=== PATIENT | male | born 1955 | race Caucasian/White ===

== ENCOUNTER 2023-11-30 18:03 | Inpatient (IN) | payer OTHER, BC ==
[2023-11-30] MEDS: SODIUM CHLORIDE 0.9% 500 ML INFUS.BAG IV ONE (18:35)
[2023-11-30 19:17] LABS: VENOUS O2 SATURATION 86.4 % (70-80); VENOUS PCO2 34.4 mmHg (38-52); VENOUS PH 7.454 (7.310-7.410)
[2023-11-30] MEDS: ACETAMINOPHEN 1000 MG/100 ML BAG IVPB ONE ×2 (19:20→19:30)
[2023-11-30 19:23] LABS: HEMATOCRIT 33.5 % (35.4-49); HEMOGLOBIN 10.7 GM/dL (11.7-16.9); MCH 30.2 pg (25.7-33.7); MCHC 31.8 g/dl (32.0-35.9); MEAN CELL VOLUME 94.9 fl (80-96); MEAN PLT VOLUME 7.5 fl (7.5-11.1); PLATELET COUNT 314 10^3/uL (134-434); RBC 3.53 M/mm3 (4.00-5.60); RDW 18.3 % (11.9-15.9); WHITE BLOOD COUNT 23.7 K/mm3 (4.0-10.0)
[2023-11-30] MEDS ORDERED: PIPERACILLIN/TAZOB 4.5 GM 4.5 GM/100 ML BAG IVPB ONE (19:23)
[2023-11-30] MEDS ORDERED: VANCOMYCIN 1 GRAM (PRE-DOCKED) 1,000 MG/250 ML BAG IVPB ONE (19:23)
[2023-11-30] MEDS: LACTATED RINGERS SOLUTION 1000 ML INFUS.BAG IV ONE ×2 (19:35→21:04)
[2023-11-30 19:36] LABS: ACTIVATED PTT 37.9 SECONDS (25.2-36.5); INR 1.58 (0.83-1.09); PROTHROMBIN TIME (PATIENT) 18.2 SEC (9.7-13.0)
[2023-11-30 19:37] LABS: POTASSIUM 5.5 mmol/L (3.5-5.1)
[2023-11-30 19:39] LABS: CALCIUM 8.8 mg/dL (8.5-10.1)
[2023-11-30 19:40] LABS: ALBUMIN 1.8 g/dl (3.4-5.0); BLOOD UREA NITROGEN 44.3 mg/dL (7-18)
[2023-11-30 19:45] LABS: BILIRUBIN,TOTAL 0.9 mg/dL (0.2-1); TOT PROT 6.8 g/dl (6.4-8.2)
[2023-11-30 19:46] LABS: LACTIC ACID 3.6 mmol/L (0.4-2.0)
[2023-11-30] MEDS: PIPERACILLIN/TAZOBACTAM 4.5 GM VIAL IVPB ONE (19:51)
[2023-11-30 20:06] LABS: ANISOCYTOSIS 1+; MACROCYTOSIS 1+; OVALOCYTE 1+
[2023-11-30] MEDS ORDERED: NOREPINEPHRINE 0.9 % NACL 8 MG/250 ML BAG IVPB ONE (20:07)
[2023-11-30 20:11] LABS: PLATELET ESTIMATE ADEQUATE
[2023-11-30] MEDS: VANCOMYCIN 1,000 MG in DEXTROSE 5%-WATER - 250 ML IVPB ONE (20:14)
[2023-11-30] MEDS: NOREPINEPHRINE IVPB SCH (20:38)
[2023-11-30] MEDS: NACL IVPB SCH (20:38)
[2023-11-30] MEDS: SODIUM CHLORIDE 2,694 ML IV ONE (21:02)
[2023-11-30] MEDS: NOREPINEPHRINE 0.9 % NACL 8 MG/250 ML BAG IVPB SCH (22:30)
[2023-11-30] MEDS ORDERED: PIPERACILLIN/TAZOB 2.25 GM 2.25 GM in DEXTROSE 5%-WATER - 50 ML IVPB SCH (22:45)
[2023-11-30] MEDS: PIPERACILLIN/TAZOB 2.25 GM 2.25 GM in DEXTROSE 5%-WATER - 50 ML IVPB SCH (23:58)
[2023-12-01 00:21] LABS: VENOUS BASE EXCESS -3.5 mmol/L (-2-2); VENOUS O2 SATURATION 83.6 % (70-80); VENOUS PCO2 39.7 mmHg (38-52); VENOUS PH 7.356 (7.310-7.410)
[2023-12-01 00:45] LABS: CALCIUM 7.9 mg/dL (8.5-10.1)
[2023-12-01 00:46] LABS: ALBUMIN 1.5 g/dl (3.4-5.0); BLOOD UREA NITROGEN 41.2 mg/dL (7-18); MAGNESIUM 1.9 mg/dL (1.8-2.4)
[2023-12-01 00:48] LABS: PHOSPHOROUS 4.2 mg/dL (2.5-4.9)
[2023-12-01 00:49] LABS: CREATININE 6.6 mg/dL (0.55-1.3)
[2023-12-01 00:50] LABS: BILIRUBIN,TOTAL 0.8 mg/dL (0.2-1)
[2023-12-01] MEDS: MUPIROCIN 2% TOPICAL OINTMENT FOR DECOLONIZATION NS SCH (02:19)
[2023-12-01] MEDS: INSULIN ASPART SLIDING SCALE (NOVOLOG) 1 VIAL SQ SCH (02:25)
[2023-12-01 06:46] LABS: INR 1.65 (0.83-1.09)
[2023-12-01 06:49] LABS: ACTIVATED PTT 36.2 SECONDS (25.2-36.5); HEMATOCRIT 33.3 % (35.4-49); HEMOGLOBIN 10.5 GM/dL (11.7-16.9); MCH 30.1 pg (25.7-33.7); MCHC 31.5 g/dl (32.0-35.9); MEAN CELL VOLUME 95.5 fl (80-96); MEAN PLT VOLUME 7.2 fl (7.5-11.1); PLATELET COUNT 345 10^3/uL (134-434); RBC 3.49 M/mm3 (4.00-5.60); RDW 18.2 % (11.9-15.9)
[2023-12-01 06:58] LABS: POTASSIUM 5.2 mmol/L (3.5-5.1)
[2023-12-01 07:01] LABS: ALBUMIN 1.5 g/dl (3.4-5.0); BLOOD UREA NITROGEN 46.1 mg/dL (7-18); CALCIUM 7.9 mg/dL (8.5-10.1); MAGNESIUM 1.9 mg/dL (1.8-2.4)
[2023-12-01 07:04] LABS: CREATININE 6.8 mg/dL (0.55-1.3); PHOSPHOROUS 4.6 mg/dL (2.5-4.9)
[2023-12-01 07:06] LABS: BILIRUBIN,TOTAL 0.7 mg/dL (0.2-1); TOT PROT 5.8 g/dl (6.4-8.2)
[2023-12-01 09:03] LABS: HEMOGLOBIN 10.9 GM/dL (11.7-16.9); MCH 30.4 pg (25.7-33.7); MCHC 32.1 g/dl (32.0-35.9); MEAN CELL VOLUME 94.6 fl (80-96); MEAN PLT VOLUME 7.3 fl (7.5-11.1); PLATELET COUNT 361 10^3/uL (134-434); RBC 3.59 M/mm3 (4.00-5.60); RDW 18.4 % (11.9-15.9)
[2023-12-01 09:23] LABS: POTASSIUM 5.3 mmol/L (3.5-5.1)
[2023-12-01 09:27] LABS: CALCIUM 8.1 mg/dL (8.5-10.1)
[2023-12-01 09:28] LABS: ALBUMIN 1.4 g/dl (3.4-5.0); BLOOD UREA NITROGEN 46.2 mg/dL (7-18)
[2023-12-01 09:31] LABS: BILIRUBIN,TOTAL 0.7 mg/dL (0.2-1); CREATININE 6.9 mg/dL (0.55-1.3); PHOSPHOROUS 4.6 mg/dL (2.5-4.9)
[2023-12-01 09:32] LABS: TOT PROT 5.9 g/dl (6.4-8.2)
[2023-12-01] MEDS: HEPARIN NA (PORCINE) 5,000 UNITS/ML 1ML VIAL SQ SCH (09:36)
[2023-12-01] MEDS: PANTOPRAZOLE SODIUM 40 MG VIAL IVPUSH SCH (09:36)
[2023-12-01 09:47] LABS: ANISOCYTOSIS 0; HELMET CELLS 0; HOWELL-JOLLY BODIES 0; MACROCYTOSIS 0; OVALOCYTE 0; ROULEAU 0; SICKELED CELLS 0; TARGET CELLS 0; TEAR DROP CELLS 0; TOXIC GRANULATION 0
[2023-12-01] MEDS: SODIUM CHLORIDE 1,000 ML IV SCH (11:00)
[2023-12-01] MEDS ORDERED: SODIUM CHLORIDE 250 ML IV PRN (13:04)
[2023-12-01] MEDS ORDERED: HEPARIN NA (PORCINE) 5,000 UNITS/ML 1ML VIAL IVPUSH PRN (15:31)
[2023-12-01] MEDS: HEPARIN INFUSION - 25,000 UNITS/500 ML INFUS.BAG IVPB SCH (16:13)
[2023-12-01] MEDS: HEPARIN NA (PORCINE) 5,000 UNITS/ML 1ML VIAL IVPUSH ONE (16:13)
[2023-12-01 17:31] LABS: BF WBC & OTHER NUCLEATED CELLS 204 /mm3
[2023-12-01] MEDS: PIPERACILLIN/TAZOB 2.25 GM 2.25 GM in DEXTROSE 5%-WATER - 50 ML IVPB SCH (17:41)
[2023-12-01] MEDS: SODIUM ZIRCONIUM CYCLOSILICATE (LOKELMA) 5 GM PACKET PO ONE (17:57)
[2023-12-01 18:19] LABS: BODY FLUID MACROPHAGES 14 %; BODY FLUID MESOTHELIAL 29 %; BODY FLUID MONOCYTE 18 %
[2023-12-01] MEDS: CHLORHEXIDINE GLUCONATE 4% CLEANSER FOR DECOLONIZATION TP SCH (21:18)
[2023-12-02] MEDS: ACETAMINOPHEN 1000 MG/100 ML BAG IVPB ONE (02:00)
[2023-12-02 06:21] LABS: BASO % 0.4 % (0-2.0); EOS % 0.8 % (0-4.5); HEMOGLOBIN 10.6 GM/dL (11.7-16.9); LYMPH % 5.3 % (8-40); MCH 30.7 pg (25.7-33.7); MCHC 32.2 g/dl (32.0-35.9); MEAN CELL VOLUME 95.6 fl (80-96); MEAN PLT VOLUME 7.4 fl (7.5-11.1); MONO % 5.7 % (3.8-10.2); NEUT % 87.8 % (42.8-82.8); PLATELET COUNT 336 10^3/uL (134-434); RBC 3.46 M/mm3 (4.00-5.60); RDW 18.5 % (11.9-15.9); WHITE BLOOD COUNT 19.8 K/mm3 (4.0-10.0)
[2023-12-02 06:34] LABS: POTASSIUM 5.5 mmol/L (3.5-5.1)
[2023-12-02 06:36] LABS: ALBUMIN 1.4 g/dl (3.4-5.0); CALCIUM 8.1 mg/dL (8.5-10.1); MAGNESIUM 2.1 mg/dL (1.8-2.4)
[2023-12-02 06:37] LABS: BLOOD UREA NITROGEN 55.1 mg/dL (7-18); INR 1.38 (0.83-1.09)
[2023-12-02 06:39] LABS: PHOSPHOROUS 5.2 mg/dL (2.5-4.9)
[2023-12-02 06:40] LABS: CREATININE 7.2 mg/dL (0.55-1.3)
[2023-12-02 06:41] LABS: BILIRUBIN,TOTAL 0.6 mg/dL (0.2-1); TOT PROT 5.8 g/dl (6.4-8.2)
[2023-12-02] MEDS: HEPARIN NA (PORCINE) 5,000 UNITS/ML 1ML VIAL IVPUSH PRN (07:00)
[2023-12-02] MEDS: MIDODRINE HCL 5 MG TABLET PO SCH (09:26)
[2023-12-02] MEDS: ALBUMIN HUMAN 25% 12.5 GM/50 ML VIAL IV SCH (09:30)
[2023-12-02] MEDS: MIDAZOLAM HCL 5 MG/2.5 ML SYRUP PO ONE (09:33)
[2023-12-02] MEDS ORDERED: SODIUM ZIRCONIUM CYCLOSILICATE (LOKELMA) 5 GM PACKET PO SCH (10:00)
[2023-12-02] MEDS: METOPROLOL TARTRATE 25 MG TABLET (FP) PO SCH (10:27)
[2023-12-02] MEDS: EPOETIN ALFA-EPBX 3,000 UNIT/ML VIAL SQ ONE (10:39)
[2023-12-02] MEDS: ISOSORBIDE DINITRATE 5 MG TABLET PO SCH (12:04)
[2023-12-02] MEDS: CALCIUM ACETATE 667 MG CAPSULE (FP) PO SCH (12:10)
[2023-12-02] MEDS: ACETAMINOPHEN 1000 MG/100 ML BAG IVPB PRN (13:45)
[2023-12-02 15:40] LABS: CALCIUM 7.9 mg/dL (8.5-10.1)
[2023-12-02 15:44] LABS: CREATININE 4.3 mg/dL (0.55-1.3); PHOSPHOROUS 2.7 mg/dL (2.5-4.9)
[2023-12-02 15:58] LABS: BLOOD UREA NITROGEN 27.6 mg/dL (7-18)
[2023-12-02] MEDS: FENTANYL CITRATE/PF 50 MCG/ML VIAL IVPUSH ONE (19:48)
[2023-12-02] MEDS: ATORVASTATIN CA 20 MG TABLET (FP) PO SCH (21:12)
[2023-12-02] MEDS: oxyCODONE HCL 5 MG TABLET PO PRN (22:51)
[2023-12-02] MEDS ORDERED: INSULIN (NOVOLOG) ASPART 100 UNITS/ML 10ML VIAL ONE (22:57)
[2023-12-03 06:36] LABS: BASO % 0.4 % (0-2.0); EOS % 1.7 % (0-4.5); HEMATOCRIT 28.7 % (35.4-49); HEMOGLOBIN 9.3 GM/dL (11.7-16.9); LYMPH % 9.3 % (8-40); MCH 30.7 pg (25.7-33.7); MCHC 32.6 g/dl (32.0-35.9); MEAN CELL VOLUME 94.3 fl (80-96); MEAN PLT VOLUME 7.7 fl (7.5-11.1); MONO % 5.8 % (3.8-10.2); NEUT % 82.8 % (42.8-82.8); PLATELET COUNT 224 10^3/uL (134-434); RBC 3.04 M/mm3 (4.00-5.60); RDW 18.6 % (11.9-15.9); WHITE BLOOD COUNT 9.5 K/mm3 (4.0-10.0)
[2023-12-03 06:54] LABS: POTASSIUM 4.2 mmol/L (3.5-5.1)
[2023-12-03 06:57] LABS: CALCIUM 7.7 mg/dL (8.5-10.1)
[2023-12-03 06:58] LABS: ALBUMIN 1.5 g/dl (3.4-5.0); BLOOD UREA NITROGEN 32.8 mg/dL (7-18); MAGNESIUM 1.8 mg/dL (1.8-2.4)
[2023-12-03 07:01] LABS: CREATININE 5.2 mg/dL (0.55-1.3); PHOSPHOROUS 3.1 mg/dL (2.5-4.9)
[2023-12-03 07:02] LABS: BILIRUBIN,TOTAL 0.5 mg/dL (0.2-1); TOT PROT 5.4 g/dl (6.4-8.2)
[2023-12-03] MEDS ORDERED: INSULIN (NOVOLOG) ASPART 100 UNITS/ML 10ML VIAL ONE ×2 (11:37→17:57)
[2023-12-03] MEDS: ISOSORBIDE DINITRATE 10 MG TABLET PO SCH (13:14)
[2023-12-04 07:56] LABS: HEMOGLOBIN 10.2 GM/dL (11.7-16.9); MCH 30.4 pg (25.7-33.7); MCHC 31.8 g/dl (32.0-35.9); MEAN CELL VOLUME 95.4 fl (80-96); MEAN PLT VOLUME 7.9 fl (7.5-11.1); PLATELET COUNT 254 10^3/uL (134-434); RBC 3.35 M/mm3 (4.00-5.60); RDW 18.5 % (11.9-15.9); WHITE BLOOD COUNT 9.6 K/mm3 (4.0-10.0)
[2023-12-04 08:14] LABS: POTASSIUM 4.6 mmol/L (3.5-5.1)
[2023-12-04 08:18] LABS: CALCIUM 8.5 mg/dL (8.5-10.1)
[2023-12-04 08:19] LABS: ALBUMIN 1.5 g/dl (3.4-5.0); BLOOD UREA NITROGEN 41.9 mg/dL (7-18); MAGNESIUM 2.1 mg/dL (1.8-2.4)
[2023-12-04 08:21] LABS: CREATININE 5.8 mg/dL (0.55-1.3)
[2023-12-04 08:22] LABS: BILIRUBIN,TOTAL 0.5 mg/dL (0.2-1); PHOSPHOROUS 3.7 mg/dL (2.5-4.9)
[2023-12-04 08:24] LABS: TOT PROT 5.8 g/dl (6.4-8.2)
[2023-12-04] MEDS: ISOSORBIDE DINITRATE 5 MG TABLET PO SCH (09:02)
[2023-12-04 09:18] LABS: ANISOCYTOSIS 1+; MACROCYTOSIS 0
[2023-12-04] MEDS: METOPROLOL TARTRATE 25 MG TABLET (FP) PO ONE (10:26)
[2023-12-04] MEDS: METOPROLOL TARTRATE 25 MG TABLET (FP) PO SCH ×2 (11:13→21:33)
[2023-12-04] MEDS ORDERED: INSULIN (NOVOLOG) ASPART 100 UNITS/ML 10ML VIAL ONE ×3 (11:28→16:22)
[2023-12-04] MEDS ORDERED: SODIUM CHLORIDE 250 ML IV PRN (11:32)
[2023-12-04] MEDS ORDERED: HEPARIN INFUSION - 500 ML IVPB SCH ×2 (13:30)
[2023-12-04] MEDS ORDERED: PYRIDOXINE HCL (B-6) 50 MG TABLET (FP) PO SCH (15:30)
[2023-12-04] MEDS: HEPARIN INFUSION - 25,000 UNITS/500 ML INFUS.BAG IVPB SCH (15:55)
[2023-12-04] MEDS ORDERED: INSULIN ASPART SLIDING SCALE (NOVOLOG) 1 VIAL SQ SCH (16:08)
[2023-12-04] MEDS: INSULIN ASPART SLIDING SCALE (NOVOLOG) 1 VIAL SQ SCH ×3 (16:23→17:53)
[2023-12-04] MEDS: CALCIUM ACETATE 667 MG CAPSULE (FP) PO SCH (17:15)
[2023-12-04] MEDS: PYRIDOXINE HCL (B-6) 50 MG TABLET (FP) PO SCH (17:16)
[2023-12-04] MEDS: MIDODRINE HCL 5 MG TABLET PO SCH (17:16)
[2023-12-04] MEDS: ATORVASTATIN CA 20 MG TABLET (FP) PO SCH (21:33)
[2023-12-04] MEDS: APIXABAN 5 MG TABLET PO SCH (21:37)
[2023-12-04] MEDS: INSULIN (LEVEMIR) 100 UNITS/ML UNITS SQ SCH (21:40)
[2023-12-04] MEDS ORDERED: APIXABAN 5 MG TABLET PO SCH (22:00)
[2023-12-05] MEDS: PANTOPRAZOLE 40 MG TABLET PO SCH (10:13)
[2023-12-05] MEDS: DIGOXIN 0.5 MG/2 ML AMPUL IVPUSH ONE (10:14)
[2023-12-05 13:30] LABS: BASO % 0.9 % (0-2.0); EOS % 1.3 % (0-4.5); HEMATOCRIT 33.7 % (35.4-49); HEMOGLOBIN 10.8 GM/dL (11.7-16.9); MCH 30.6 pg (25.7-33.7); MEAN CELL VOLUME 95.6 fl (80-96); MEAN PLT VOLUME 7.6 fl (7.5-11.1); NEUT % 83.8 % (42.8-82.8); PLATELET COUNT 253 10^3/uL (134-434); RBC 3.52 M/mm3 (4.00-5.60); RDW 18.5 % (11.9-15.9); WHITE BLOOD COUNT 11.8 K/mm3 (4.0-10.0)
[2023-12-05 13:53] LABS: POTASSIUM 5.3 mmol/L (3.5-5.1)
[2023-12-05 14:08] LABS: BODY FLUID ALBUMIN 1.8 g/dL (Not Estab.)
[2023-12-05 14:11] LABS: ALBUMIN 1.6 g/dl (3.4-5.0); BLOOD UREA NITROGEN 46.8 mg/dL (7-18); CALCIUM 8.5 mg/dL (8.5-10.1); MAGNESIUM 2.1 mg/dL (1.8-2.4)
[2023-12-05 14:14] LABS: CREATININE 6.6 mg/dL (0.55-1.3)
[2023-12-05 14:16] LABS: BILIRUBIN,TOTAL 0.6 mg/dL (0.2-1); TOT PROT 5.9 g/dl (6.4-8.2)
[2023-12-05] MEDS: ALBUMIN HUMAN 25% 12.5 GM/50 ML VIAL IV SCH (15:50)
[2023-12-05] MEDS: EPOETIN ALFA-EPBX 2,000 UNIT/ML VIAL IVPUSH ONE (15:51)
[2023-12-05] MEDS: METOPROLOL TARTRATE 25 MG TABLET (FP) PO SCH (21:33)
[2023-12-06] MEDS: PIPERACILLIN/TAZOB 2.25 GM 2.25 GM in DEXTROSE 5%-WATER - 50 ML IVPB SCH (01:14)
[2023-12-06] MEDS ORDERED: DEXTROSE 50%-WATER 25 GM/50 ML DISP.SYRIN ONE ×2 (06:19→12:07)
[2023-12-06] MEDS: DEXTROSE 50%-WATER - 25 GM/50 ML VIAL IVPUSH ONE (06:21)
[2023-12-06] MEDS: DEXTROSE 50%-WATER 25 GM/50 ML DISP.SYRIN IVPUSH ONE ×2 (06:39→15:38)
[2023-12-06] MEDS ORDERED: SODIUM CHLORIDE 250 ML IV PRN (21:37)
[2023-12-07 08:33] LABS: BASO % 0.7 % (0-2.0); EOS % 0.7 % (0-4.5); HEMOGLOBIN 12.7 GM/dL (11.7-16.9); MCH 30.4 pg (25.7-33.7); MCHC 31.8 g/dl (32.0-35.9); MEAN CELL VOLUME 95.7 fl (80-96); MEAN PLT VOLUME 7.9 fl (7.5-11.1); MONO % 3.1 % (3.8-10.2); NEUT % 88.5 % (42.8-82.8); PLATELET COUNT 307 10^3/uL (134-434); RBC 4.17 M/mm3 (4.00-5.60); WHITE BLOOD COUNT 15.1 K/mm3 (4.0-10.0)
[2023-12-07 09:01] LABS: POTASSIUM 5.9 mmol/L (3.5-5.1)
[2023-12-07 09:03] LABS: ALBUMIN 1.7 g/dl (3.4-5.0)
[2023-12-07 09:07] LABS: BILIRUBIN,TOTAL 0.8 mg/dL (0.2-1); TOT PROT 6.3 g/dl (6.4-8.2)
[2023-12-07] MEDS: INSULIN (LEVEMIR) 100 UNITS/ML UNITS SQ SCH (10:50)
[2023-12-07] MEDS ORDERED: EPOETIN ALFA-EPBX 2,000 UNIT/ML VIAL IVPUSH ONE (21:37)
[2023-12-07] MEDS: CARVEDILOL 6.25 MG TABLET (FP) PO SCH (22:30)
[2023-12-07 23:37] VITALS: BMI 26.2
[2023-12-08] MEDS: oxyCODONE HCL 5 MG TABLET PO PRN (00:23)
[2023-12-08] MEDS ORDERED: INSULIN (NOVOLOG) ASPART 100 UNITS/ML 10ML VIAL ONE (12:11)
[2023-12-08] MEDS ORDERED: SODIUM CHLORIDE 250 ML IV PRN (16:15)
[2023-12-09 08:36] LABS: ALBUMIN 1.6 g/dl (3.4-5.0)
[2023-12-09 08:38] LABS: BILIRUBIN,DIRECT 0.4 mg/dL (0.0-0.2)
[2023-12-09 08:40] LABS: BILIRUBIN,TOTAL 0.9 mg/dL (0.2-1); TOT PROT 6.2 g/dl (6.4-8.2)
[2023-12-09 08:55] LABS: INR 1.89 (0.83-1.09); PROTHROMBIN TIME (PATIENT) 21.8 SEC (9.7-13.0)
[2023-12-10 17:24] LABS: HEMOGLOBIN 11.1 GM/dL (11.7-16.9); MCHC 32.8 g/dl (32.0-35.9); MEAN CELL VOLUME 94.6 fl (80-96); MEAN PLT VOLUME 7.2 fl (7.5-11.1); PLATELET COUNT 215 10^3/uL (134-434); RBC 3.59 M/mm3 (4.00-5.60); RDW 18.5 % (11.9-15.9)
[2023-12-10 17:42] LABS: POTASSIUM 4.5 mmol/L (3.5-5.1)
[2023-12-10 17:44] LABS: CALCIUM 9.3 mg/dL (8.5-10.1)
[2023-12-10 17:45] LABS: ALBUMIN 1.7 g/dl (3.4-5.0); BLOOD UREA NITROGEN 27.1 mg/dL (7-18)
[2023-12-10 17:47] LABS: CREATININE 4.7 mg/dL (0.55-1.3)
[2023-12-10 17:49] LABS: BILIRUBIN,TOTAL 0.8 mg/dL (0.2-1); TOT PROT 6.2 g/dl (6.4-8.2)
[2023-12-11 11:11] LABS: BASO % 1.2 % (0-2.0); EOS % 0.7 % (0-4.5); HEMATOCRIT 34.8 % (35.4-49); HEMOGLOBIN 11.1 GM/dL (11.7-16.9); MCH 30.5 pg (25.7-33.7); MCHC 31.8 g/dl (32.0-35.9); MEAN CELL VOLUME 95.8 fl (80-96); MEAN PLT VOLUME 7.5 fl (7.5-11.1); MONO % 6.3 % (3.8-10.2); NEUT % 81.8 % (42.8-82.8); PLATELET COUNT 224 10^3/uL (134-434); RBC 3.63 M/mm3 (4.00-5.60); RDW 17.9 % (11.9-15.9); WHITE BLOOD COUNT 8.9 K/mm3 (4.0-10.0)
[2023-12-11 11:18] LABS: INR 1.83 (0.83-1.09); PROTHROMBIN TIME (PATIENT) 21.1 SEC (9.7-13.0)
[2023-12-11 11:32] LABS: POTASSIUM 4.9 mmol/L (3.5-5.1)
[2023-12-11 11:34] LABS: ALBUMIN 1.6 g/dl (3.4-5.0); BLOOD UREA NITROGEN 35.4 mg/dL (7-18); CALCIUM 9.4 mg/dL (8.5-10.1)
[2023-12-11 11:37] LABS: CREATININE 5.5 mg/dL (0.55-1.3)
[2023-12-11 11:39] LABS: BILIRUBIN,TOTAL 0.9 mg/dL (0.2-1); TOT PROT 6.4 g/dl (6.4-8.2)
[2023-12-11] MEDS ORDERED: INSULIN (NOVOLOG) ASPART 100 UNITS/ML 10ML VIAL ONE (12:30)
[2023-12-11 18:40] LABS: BF WBC & OTHER NUCLEATED CELLS 71 /mm3
[2023-12-11 20:35] LABS: BODY FLUID MACROPHAGES 49 %; BODY FLUID MESOTHELIAL 27 %; BODY FLUID MONOCYTE 8 %
[2023-12-12] MEDS ORDERED: INSULIN (NOVOLOG) ASPART 100 UNITS/ML 10ML VIAL ONE ×2 (06:41→13:11)
[2023-12-12] MEDS ORDERED: SODIUM CHLORIDE 250 ML IV PRN (07:06)
[2023-12-12 09:09] LABS: HEMATOCRIT 35.3 % (35.4-49); HEMOGLOBIN 11.5 GM/dL (11.7-16.9); MCH 31.3 pg (25.7-33.7); MCHC 32.6 g/dl (32.0-35.9); MEAN CELL VOLUME 95.8 fl (80-96); MEAN PLT VOLUME 7.6 fl (7.5-11.1); PLATELET COUNT 215 10^3/uL (134-434); RBC 3.68 M/mm3 (4.00-5.60); RDW 17.4 % (11.9-15.9)
[2023-12-12 09:35] LABS: POTASSIUM 5.1 mmol/L (3.5-5.1)
[2023-12-12 09:36] LABS: ALBUMIN 1.5 g/dl (3.4-5.0); BILIRUBIN,TOTAL 0.7 mg/dL (0.2-1); BLOOD UREA NITROGEN 39.6 mg/dL (7-18); CALCIUM 9.3 mg/dL (8.5-10.1); CREATININE 6.2 mg/dL (0.55-1.3)
[2023-12-12] MEDS: ALBUMIN HUMAN 25% 12.5 GM/50 ML VIAL IV SCH (13:24)
[2023-12-13 09:01] VITALS: BP 121/75; PULSE 77; RESP 18; TEMP 97.3
[2023-12-13] MEDS: INSULIN (LEVEMIR) 100 UNITS/ML UNITS SQ SCH (09:05)
[2023-12-13] MEDS: ALBUMIN HUMAN 25% 12.5 GM/50 ML VIAL IV ONE (09:34)
[2023-12-13 14:18] LABS: BODY FLUID ALBUMIN 1.7 g/dL (Not Estab.)
== END 2023-12-13 12:39 | DRG 871 ==
LOC: JER 18:03 → EDBD 18:03 → JERBED 21:06 → JICU 22:06 → J4W 12-04 18:08
PROVIDERS: ADMIT Internal Medicine Pulmonary Disease; ATTEND Family Medicine
PROC: 5A1D70Z Performance of Urinary Filtration, Intermittent, Less than 6 Hours Per Day (ICD-10-PCS; principal; 2023-12-02)
PROC: 5A1D70Z Performance of Urinary Filtration, Intermittent, Less than 6 Hours Per Day (ICD-10-PCS; 2023-12-05)
PROC: 5A1D70Z Performance of Urinary Filtration, Intermittent, Less than 6 Hours Per Day (ICD-10-PCS; 2023-12-07)
PROC: 5A1D70Z Performance of Urinary Filtration, Intermittent, Less than 6 Hours Per Day (ICD-10-PCS; 2023-12-09)
PROC: 0W9G3ZZ Drainage of Peritoneal Cavity, Percutaneous Approach (ICD-10-PCS; 2023-12-11)
PROC: 5A1D70Z Performance of Urinary Filtration, Intermittent, Less than 6 Hours Per Day (ICD-10-PCS; 2023-12-12)
DX: A41.89 Other specified sepsis (principal); G93.41 Metabolic encephalopathy; I21.4 Non-ST elevation (NSTEMI) myocardial infarction; N18.6 End stage renal disease; R65.21 Severe sepsis with septic shock; J96.01 Acute respiratory failure with hypoxia; R18.8 Other ascites; Z94.0 Kidney transplant status; I12.0 Hypertensive chronic kidney disease with stage 5 chronic kidney disease or end stage renal disease; E87.20 Acidosis, unspecified; I25.10 Atherosclerotic heart disease of native coronary artery without angina pectoris; K74.60 Unspecified cirrhosis of liver; I48.91 Unspecified atrial fibrillation; E11.22 Type 2 diabetes mellitus with diabetic chronic kidney disease; Z99.2 Dependence on renal dialysis; R94.31 Abnormal electrocardiogram [ECG] [EKG]; R50.9 Fever, unspecified; D72.829 Elevated white blood cell count, unspecified; C62.90 Malignant neoplasm of unspecified testis, unspecified whether descended or undescended; L89.152 Pressure ulcer of sacral region, stage 2; I45.10 Unspecified right bundle-branch block
CPT/HCPCS: 0241U-QW; 36415; 71045-TC-FY; 76700-TC; 76942-TC; 80048; 80053; 80076; 82042; 82140; 82150; 82465; 82803; 82945; 82962; 83036; 83605; 83615; 83735; 83986; 84100; 84157; 84443; 84478; 84484; 85025; 85027; 85610; 85730; 86140; 86803; 86850; 86900; 86901; 87040; 87070; 87075; 87205; 87340; 87517; 87635; 88108; 88305-TC; 93005; 93010; 93306-TC; 97162-GP; 99291; J0131; J1644; P9047; Q5106